=== PATIENT | male | born 1970 | race Caucasian/White ===

== ENCOUNTER 2017-07-23 08:15 | Emergency (ER) | payer BC ==
[2017-07-23 08:22] VITALS: BP 134/81
--- NOTE | 2017-07-23 08:42 | UC ---
Cardiac HPI - HPI Summary HPI Summary: Last week he used his chest as leverage to cut some tin in his studio---it felt like he cracked some ribs (right upper), has been taking Ibuprofen with good effect--Last night he felt SOB and had some very minor feeling of esophageal irritation - History of Current Complaint Chief Complaint: UCChestPain Stated Complaint: SOB Time Seen by Provider: 07/23/17 08:26 Hx Obtained From: Patient Onset/Duration: Sudden Onset Initial Severity: Moderate Current Severity: None Chest Pain Location: Discrete at: - right upper ribs radiating in to back Aggravating Factor(s): Nothing Alleviating Factor(s): Spontaneous Resolution, Nothing Associated Signs & Symptoms: Positive: SOB - Allergy/Home Medications Allergies/Adverse Reactions: Allergies Allergy/AdvReac Type Severity Reaction Status Date / Time No Known Allergies Allergy Verified 07/23/17 08:22 Home Medications: Home Medications Levothyroxine TAB* [Synthroid 137 MCG TAB*] 1 tab PO DAILY 07/23/17 [History Confirmed 07/23/17] PMH/Surg Hx/FS Hx/Imm Hx Previously Healthy: No Endocrine History: Thyroid Disease Cancer History: Other Other Cancer History: THyroid Cancer - Surgical History Surgical History: Yes Surgery Procedure, Year, and Place: 1970- [facility]. WISDOM TEETH REMOVED. Thryoidectomy - Family History Known Family History: Positive: Other - Cancers - Social History Occupation: Employed Full-time Lives: With Family Alcohol Use: Daily Substance Use Type: None Smoking Status (MU): Never Smoked Tobacco - Immunization History Most Recent Influenza Vaccination: Not UTD Review of Systems Constitutional: Negative Skin: Negative Eyes: Negative ENT: Negative Respiratory: Negative Cardiovascular: Negative, Other - right upper chest wall pain that radiates in to back Gastrointestinal: Negative Genitourinary: Negative Motor: Negative Neurovascular: Negative Musculoskeletal: Negative Neurological: Negative Psychological: Negative Is Patient Immunocompromised?: No All Other Systems Reviewed And Are Negative: Yes Physical Exam Triage Information Reviewed: Yes Appearance: Well-Appearing, No Pain Distress, Well-Nourished Vital Signs: Initial Vital Signs Temp 97.5 F 07/23/17 08:16 Pulse 76 07/23/17 08:16 Resp 18 07/23/17 08:16 BP 134/81 07/23/17 08:16 Pulse Ox 100 07/23/17 08:16 Vital Signs Reviewed: Yes Eye Exam: Normal Eyes: Positive: Conjunctiva Clear ENT Exam: Normal ENT: Positive: Normal ENT inspection, Hearing grossly normal. Negative: Nasal congestion, Trismus, Muffled voice, Hoarse voice Dental Exam: Normal Neck exam: Normal Neck: Positive: Supple, Nontender Respiratory Exam: Normal Respiratory: Positive: Chest non-tender, Lungs clear, Normal breath sounds, No respiratory distress, No accessory muscle use Cardiovascular Exam: Normal Cardiovascular: Positive: RRR, No Murmur, Pulses Normal, Brisk Capillary Refill Abdominal Exam: Normal Abdomen Description: Positive: Nontender, No Organomegaly, Soft. Negative: CVA Tenderness (R), CVA Tenderness (L), Distended, Hepatomegaly Bowel Sounds: Positive: Present Musculoskeletal Exam: Normal Musculoskeletal: Positive: Strength Intact, ROM Intact Neurological Exam: Normal Neurological: Positive: Alert, Muscle Tone Normal Psychological Exam: Normal Skin Exam: Normal Diagnostics - Radiology No standard instances Xray Interpretation: No Acute Changes Radiology Interpretation Completed By: ED Physician, Radiologist - Assessment/Plan Course Of Treatment: Add Pepcid, continue Ibuprofen follow with pcp this week - Differential Diagnoses - Chest Pain Differential Diagnosis/HQI/PQRI: Chest Wall - Clinical Impression Provider Diagnoses: Chest wall pain, GERD Discharge - Discharge Plan Condition: Stable Disposition: HOME Patient Education Materials: Famotidine (By mouth), Gastroesophageal Reflux Disease (ED), Chest Wall Pain (ED) Referrals: Jesús Mejia MD [Primary Care Provider] - 1 Week
--- NOTE | 2017-07-23 08:57 | RAD ---
HISTORY: Shortness of breath, right rib pain COMPARISONS: January 10, 2017 VIEWS: 4: Frontal dual-energy and lateral views of the chest. FINDINGS: CARDIOMEDIASTINAL SILHOUETTE: The cardiomediastinal silhouette is normal. ANSHUL: The anshul are normal. PLEURA: The costophrenic angles are sharp. No pleural abnormalities are noted. LUNG PARENCHYMA: The lungs are clear. ABDOMEN: The upper abdomen is clear. There is no subphrenic gas. BONES AND SOFT TISSUES: No bone or soft tissue abnormalities are noted. OTHER: None. IMPRESSION: NO ACTIVE CARDIOPULMONARY DISEASE.
== END 2017-07-23 09:27 | disposition home or self-care (01) ==
LOC: UCEAST 08:15
DX: R07.89 Other chest pain (principal); X50.0XXA Overexertion from strenuous movement or load, initial encounter; Y93.89 Activity, other specified; Y92.9 Unspecified place or not applicable; Y99.9 Unspecified external cause status; K21.9 Gastro-esophageal reflux disease without esophagitis
CPT/HCPCS: 71020; 93005; 99211; G0463